=== PATIENT | male | born 1985 | race Caucasian/White ===

== ENCOUNTER 2018-03-28 12:47 | Inpatient (IN) | payer MEDICAID, OTHER ==
[~2018-03-28] VITALS: Ht 182.9 cm; Wt 100.0 kg
[~2018-03-28 12:47] MED LIST: ARIP10TA8 PO
[2018-03-28 13:26] LABS: AMPHET/METH SCREEN,URINE NEGATIVE (NEGATIVE); BARBITURATE SCREEN, URINE NEGATIVE (NEGATIVE); BENZODIAZEPINES SCREEN,URINE NEGATIVE (NEGATIVE); CANNABINOID SCREEN,URINE NEGATIVE (NEGATIVE); COCAINE SCREEN,URINE NEGATIVE (NEGATIVE); METHADONE SCREEN, URINE NEGATIVE (NEGATIVE); OPIATE SCREEN,URINE NEGATIVE (NEGATIVE)
[2018-03-28 13:28] LABS: PHENCYCLIDINE SCREEN,URINE NEGATIVE (NEGATIVE)
[2018-03-28 13:31] LABS: BASOPHILS % (AUTO) 0.4 % (0.0-2.0); EOSINOPHILS % (AUTO) 0.7 % (1.0-6.0); HEMATOCRIT 47.3 % (41-53); HEMOGLOBIN 16.3 g/dL (13.5-17.5); LYMPHOCYTES # (AUTO) 2.1 K/uL (1.0-4.8); LYMPHOCYTES % (AUTO) 24.2 % (22.0-44.0); MEAN CORPUSCULAR HEMOGLOBIN 31.2 pg (26.0-34.0); MEAN CORPUSCULAR HGB CONC 34.5 G/dL (31.0-37.0); MEAN CORPUSCULAR VOLUME 91 fL (80-100); MONOCYTES # (AUTO) 0.5 K/uL (0.1-1.0); MONOCYTES % (AUTO) 6.3 % (2.0-9.0); NEUTROPHILS % (AUTO) 68.4 % (40.0-70.0); PLATELET COUNT (AUTO) 189 K/uL (150-450); RED BLOOD CELL COUNT(AUTO) 5.22 MIL/uL (4.50-5.90); RED CELL DISTRIBUTION WIDTH 13.1 % (11.5-14.5)
[2018-03-28 13:39] LABS: ANION GAP 6 mmol/L (8-16); CARBON DIOXIDE 29 mmol/L (22-29); CHLORIDE 104 mmol/L (98-107); CREATININE 1.05 mg/dL (0.60-1.30); GLOMERULAR FILTR. RATE CALC > 60 mL/min (>60); GLUCOSE,RANDOM 102 mg/dL (70-110); POTASSIUM 3.7 mmol/L (3.5-5.1); SODIUM SERUM 139 mmol/L (136-145); UREA NITROGEN, BLOOD 17 mg/dL (7-18)
[2018-03-28] MEDS ORDERED: QUET200T PO (13:42)
[2018-03-28 13:44] LABS: ALANINE AMINOTRANSFERASE 83 U/L (12-78); ALBUMIN 4.1 g/dL (3.4-5.0); ALKALINE PHOSPHATASE 124 U/L (46-116); ASPARTATE AMINOTRANSFERASE 35 U/L (15-37); BILIRUBIN,TOTAL 0.7 mg/dL (0.1-1.0)
[2018-03-28] MEDS ORDERED: HALOPERIDOL 5 MG TABLET PO ONE (14:45)
[2018-03-28] MEDS ORDERED: LORazepam 2 MG TABLET PO ONE (14:45)
[2018-03-28] MEDS ORDERED: ZOLPIDEM TARTRATE 10 MG TABLET PO PRN (18:45)
[2018-03-29 08:48] LABS: BASOPHILS % (AUTO) 0.2 % (0.0-2.0); EOSINOPHILS % (AUTO) 0.4 % (1.0-6.0); HEMATOCRIT 44.3 % (41-53); HEMOGLOBIN 15.3 g/dL (13.5-17.5); LYMPHOCYTES # (AUTO) 1.4 K/uL (1.0-4.8); LYMPHOCYTES % (AUTO) 19.5 % (22.0-44.0); MEAN CORPUSCULAR HEMOGLOBIN 31.1 pg (26.0-34.0); MEAN CORPUSCULAR HGB CONC 34.4 G/dL (31.0-37.0); MEAN CORPUSCULAR VOLUME 91 fL (80-100); MONOCYTES # (AUTO) 0.3 K/uL (0.1-1.0); MONOCYTES % (AUTO) 4.1 % (2.0-9.0); NEUTROPHILS # (AUTO) 5.6 K/uL (1.8-7.7); NEUTROPHILS % (AUTO) 75.8 % (40.0-70.0); PLATELET COUNT (AUTO) 170 K/uL (150-450); RED CELL DISTRIBUTION WIDTH 13.1 % (11.5-14.5)
[2018-03-29 09:19] LABS: ALANINE AMINOTRANSFERASE 73 U/L (12-78); ALBUMIN 3.7 g/dL (3.4-5.0); ALKALINE PHOSPHATASE 120 U/L (46-116); ANION GAP 6 mmol/L (8-16); ASPARTATE AMINOTRANSFERASE 30 U/L (15-37); BILIRUBIN,TOTAL 0.6 mg/dL (0.1-1.0); CALCIUM, TOTAL 8.7 mg/dL (8.8-10.5); CARBON DIOXIDE 29 mmol/L (22-29); CHLORIDE 106 mmol/L (98-107); FREE T4 (FREE THYROXINE) 0.88 ng/dL (0.76-1.46); GLOMERULAR FILTR. RATE CALC > 60 mL/min (>60); GLUCOSE,RANDOM 120 mg/dL (70-110); POTASSIUM 3.9 mmol/L (3.5-5.1); SODIUM SERUM 141 mmol/L (136-145); TOTAL PROTEIN, SERUM 7.4 g/dL (6.4-8.2); UREA NITROGEN, BLOOD 14 mg/dL (7-18)
[2018-03-29 16:06] VITALS: BP 126/63
[2018-03-29] MEDS: HALOPERIDOL 5 MG TABLET PO PRN (17:01)
[2018-03-29] MEDS: LORazepam 2 MG TABLET PO PRN (17:01)
[2018-03-30 01:25] VITALS: BP 135/75
[2018-03-30] MEDS: LORazepam 2 MG TABLET PO PRN ×3 (01:26→18:36)
[2018-03-30] MEDS: HALOPERIDOL 5 MG TABLET PO PRN ×2 (01:26→08:32)
[2018-03-30 08:37] VITALS: BP 113/76
[2018-03-30 16:00] VITALS: BP 119/70
[2018-03-30] MEDS: ARIPiprazole 15 MG TABLET PO SCH (16:58)
[2018-03-30] MEDS ORDERED: MIRTAZAPINE 15 MG TABLET PO SCH (21:00)
[2018-03-31 03:57] VITALS: BP 123/73
[2018-03-31 08:05] VITALS: BP 135/61
[2018-03-31] MEDS: ARIPiprazole 15 MG TABLET PO SCH (08:35)
[2018-03-31] MEDS ORDERED: ARIP15TA2 PO (09:27)
[2018-03-31] MEDS ORDERED: MIRT15 PO (09:27)
== END 2018-03-31 13:30 | disposition home or self-care (01) | DRG 750 ==
LOC: EMS 12:50 → B3A 03-29 13:23
PROVIDERS: ADMIT Psychiatry & Neurology Child & Adolescent Psychiatry; ATTEND Psychiatry & Neurology Child & Adolescent Psychiatry
DX: F20.0 Paranoid schizophrenia (principal); R45.87 Impulsiveness; Z63.9 Problem related to primary support group, unspecified
CPT/HCPCS: 84439; 84443; 99285; G0480

== ENCOUNTER 2018-08-02 23:51 | Emergency (ER) | payer MEDICAID, OTHER ==
[~2018-08-02] VITALS: Ht 188 cm; Wt 107.0 kg
[~2018-08-02 23:51] MED LIST changes: -ARIP10TA8 PO; +ARIP15TA2 PO; +MIRT15 PO
[2018-08-03] MEDS ORDERED: QUET200T PO (00:03)
[2018-08-03] MEDS ORDERED: TRAZ150 PO (00:04)
[2018-08-03] MEDS ORDERED: CLON1 PO (00:04)
[2018-08-03] MEDS ORDERED: IBUPROFEN 600 MG TABLET PO ONE (02:15)
[2018-08-03] MEDS ORDERED: ONDANSETRON HCL 4 MG TABLET PO ONE (02:15)
[2018-08-03 03:15] VITALS: BP 118/80
== END 2018-08-03 03:31 | disposition home or self-care (01) ==
LOC: EMS 23:52
DX: R07.89 Other chest pain (principal); R06.02 Shortness of breath; F41.9 Anxiety disorder, unspecified; F20.9 Schizophrenia, unspecified; Z79.899 Other long term (current) drug therapy
CPT/HCPCS: 71045; 93005; 99284; Q0162

== ENCOUNTER 2018-12-17 17:34 | Inpatient (IN) | payer MEDICAID, OTHER ==
[~2018-12-17] VITALS: Ht 180.3 cm; Wt 109.5 kg
[~2018-12-17 17:34] MED LIST changes: -ARIP15TA2 PO; +CLON1 PO; +QUET200T PO; +TRAZ150 PO
[2018-12-17] MEDS ORDERED: TRAZ150 PO (18:23)
[2018-12-17] MEDS ORDERED: QUET200T PO (18:23)
[2018-12-17] MEDS ORDERED: CLON1 PO (18:23)
[2018-12-17] MEDS ORDERED: MIRT15 PO (18:23)
[2018-12-17 19:18] LABS: BASOPHILS % (AUTO) 0.3 % (0.0-2.0); EOSINOPHILS % (AUTO) 0.1 % (1.0-6.0); HEMATOCRIT 46.1 % (41-53); HEMOGLOBIN 15.9 g/dL (13.5-17.5); LYMPHOCYTES # (AUTO) 1.5 K/uL (1.0-4.8); LYMPHOCYTES % (AUTO) 13.7 % (22.0-44.0); MEAN CORPUSCULAR HEMOGLOBIN 31.3 pg (26.0-34.0); MEAN CORPUSCULAR HGB CONC 34.4 G/dL (31.0-37.0); MEAN CORPUSCULAR VOLUME 91 fL (80-100); MONOCYTES # (AUTO) 0.5 K/uL (0.1-1.0); MONOCYTES % (AUTO) 4.2 % (2.0-9.0); NEUTROPHILS # (AUTO) 8.8 K/uL (1.8-7.7); NEUTROPHILS % (AUTO) 81.7 % (40.0-70.0); PLATELET COUNT (AUTO) 171 K/uL (150-450); RED BLOOD CELL COUNT(AUTO) 5.06 MIL/uL (4.50-5.90); RED CELL DISTRIBUTION WIDTH 13.1 % (11.5-14.5)
[2018-12-17 19:20] LABS: ANION GAP 9 mmol/L (8-16); CALCIUM, TOTAL 9.4 mg/dL (8.8-10.5); CARBON DIOXIDE 26 mmol/L (22-29); CHLORIDE 103 mmol/L (98-107); CREATININE 1.18 mg/dL (0.60-1.30); GLOMERULAR FILTR. RATE CALC > 60 mL/min (>60); GLUCOSE,RANDOM 135 mg/dL (70-110); POTASSIUM 3.9 mmol/L (3.5-5.1); SODIUM SERUM 138 mmol/L (136-145); UREA NITROGEN, BLOOD 19 mg/dL (7-18)
[2018-12-17 19:25] LABS: ALANINE AMINOTRANSFERASE 210 U/L (12-78); ALBUMIN 4.3 g/dL (3.4-5.0); ALKALINE PHOSPHATASE 123 U/L (46-116); ASPARTATE AMINOTRANSFERASE 73 U/L (15-37); BILIRUBIN,TOTAL 0.4 mg/dL (0.1-1.0)
[2018-12-17] MEDS ORDERED: HALOPERIDOL 5 MG TABLET PO PRN (23:30)
[2018-12-17] MEDS ORDERED: LORazepam 2 MG TABLET PO PRN (23:30)
[2018-12-17] MEDS ORDERED: ZOLPIDEM TARTRATE 10 MG TABLET PO PRN (23:30)
[2018-12-18 00:40] VITALS: BP 124/78
[2018-12-18 07:01] LABS: CHOL/HDL RATIO 4.6 (4.2-7.3)
[2018-12-18 08:00] VITALS: BP 122/72
[2018-12-18] MEDS: ClonazePAM 1 MG TABLET PO SCH (13:56)
[2018-12-18] MEDS ORDERED: LORazepam 2 MG TABLET PO PRN (15:30)
[2018-12-18 17:53] VITALS: BP 120/78
[2018-12-18] MEDS: QUEtiapine FUMARATE 200 MG TABLET PO SCH (18:00)
[2018-12-18] MEDS: TraZODone HCL 150 MG TABLET PO SCH (21:31)
[2018-12-18] MEDS: MIRTAZAPINE 15 MG TABLET PO SCH (21:31)
[2018-12-19] MEDS: QUEtiapine FUMARATE 200 MG TABLET PO SCH ×2 (08:34→16:03)
[2018-12-19] MEDS: ClonazePAM 1 MG TABLET PO SCH (08:34)
[2018-12-19 08:40] VITALS: BP 125/73
[2018-12-19 16:52] VITALS: BP 141/73
[2018-12-19] MEDS: TraZODone HCL 150 MG TABLET PO SCH (20:48)
[2018-12-19] MEDS: MIRTAZAPINE 15 MG TABLET PO SCH (20:48)
[2018-12-20] MEDS: ClonazePAM 1 MG TABLET PO SCH (07:45)
[2018-12-20] MEDS: QUEtiapine FUMARATE 200 MG TABLET PO SCH ×2 (07:45→16:47)
[2018-12-20 08:00] VITALS: BP 126/82
== END 2018-12-20 17:00 | disposition home or self-care (01) | DRG 750 ==
LOC: EMS 17:36 → 3EC 23:30
DX: F25.1 Schizoaffective disorder, depressive type (principal); K76.0 Fatty (change of) liver, not elsewhere classified; E78.1 Pure hyperglyceridemia; Z79.899 Other long term (current) drug therapy; Z28.21 Immunization not carried out because of patient refusal
CPT/HCPCS: G0480

== ENCOUNTER 2019-02-12 22:34 | Emergency (ER) | payer MEDICAID, OTHER ==
[~2019-02-12] VITALS: Ht 182.9 cm; Wt 113.6 kg
[2019-02-12] MEDS ORDERED: GuaiFENesin/D-METHORPHAN [SUGAR-FREE] 200-20MG/10 ML SYRUP UDCUP PO ONE (23:30)
[2019-02-12] MEDS ORDERED: ACETAMINOPHEN 500 MG TABLET PO ONE (23:30)
[2019-02-13 00:10] VITALS: BP 128/71
== END 2019-02-13 00:27 | disposition home or self-care (01) ==
LOC: EMS 22:35
DX: J06.9 Acute upper respiratory infection, unspecified (principal); F20.9 Schizophrenia, unspecified; Z79.899 Other long term (current) drug therapy

== ENCOUNTER 2019-12-25 17:40 | Emergency (ER) | payer OTHER ==
[~2019-12-25] VITALS: Ht 188 cm; Wt 118.2 kg
[~2019-12-25 17:40] MED LIST changes: -CLON1 PO; +CLON1TAB13 PO; -MIRT15 PO
[2019-12-25 18:56] LABS: BASOPHILS % (AUTO) 0.3 % (0.0-2.0); EOSINOPHILS % (AUTO) 0.3 % (1.0-6.0); HEMATOCRIT 43.1 % (41-53); HEMOGLOBIN 14.6 g/dL (13.5-17.5); LYMPHOCYTES # (AUTO) 1.9 K/uL (1.0-4.8); LYMPHOCYTES % (AUTO) 15.4 % (22.0-44.0); MEAN CORPUSCULAR HEMOGLOBIN 30.8 pg (26.0-34.0); MEAN CORPUSCULAR HGB CONC 33.8 G/dL (31.0-37.0); MEAN CORPUSCULAR VOLUME 91 fL (80-100); MONOCYTES # (AUTO) 0.8 K/uL (0.1-1.0); MONOCYTES % (AUTO) 6.3 % (2.0-9.0); NEUTROPHILS # (AUTO) 9.5 K/uL (1.8-7.7); NEUTROPHILS % (AUTO) 77.7 % (40.0-70.0); PLATELET COUNT (AUTO) 153 K/uL (150-450); RED BLOOD CELL COUNT(AUTO) 4.73 MIL/uL (4.50-5.90); RED CELL DISTRIBUTION WIDTH 13.3 % (11.5-14.5)
[2019-12-25] MEDS ORDERED: LORA-1000 PO (18:59)
[2019-12-25 19:20] LABS: ANION GAP 6 mmol/L (8-16); CALCIUM, TOTAL 9.5 mg/dL (8.8-10.5); CARBON DIOXIDE 30 mmol/L (22-29); CHLORIDE 100 mmol/L (98-107); CREATININE 1.21 mg/dL (0.60-1.30); GLOMERULAR FILTR. RATE CALC > 60 mL/min (>60); GLUCOSE,RANDOM 102 mg/dL (70-110); POTASSIUM 3.8 mmol/L (3.5-5.1); SODIUM SERUM 136 mmol/L (136-145); UREA NITROGEN, BLOOD 16 mg/dL (7-18)
[2019-12-25 19:26] LABS: ALANINE AMINOTRANSFERASE 140 U/L (12-78); ALBUMIN 4.4 g/dL (3.4-5.0); ALKALINE PHOSPHATASE 131 U/L (46-116); ASPARTATE AMINOTRANSFERASE 79 U/L (15-37); BILIRUBIN,TOTAL 0.7 mg/dL (0.1-1.0); TOTAL PROTEIN, SERUM 7.9 g/dL (6.4-8.2)
[2019-12-25 19:28] LABS: APPEARANCE,URINE CLEAR (CLEAR); BILIRUBIN,URINE NEGATIVE (NEGATIVE); GLUCOSE, URINE (UA) NEGATIVE (NEGATIVE); KETONES,URINE NEGATIVE (NEGATIVE); LEUKOCYTE ESTERASE ,URINE NEGATIVE (NEGATIVE); NITRATE,URINE NEGATIVE (NEGATIVE); OCCULT BLOOD,URINE NEGATIVE (NEGATIVE); PH,URINE 5.5 (5.0-8.0); PROTEIN,URINE NEGATIVE (NEGATIVE); UROBILINOGEN,URINE 0.2 mg/dL (<=1.0)
[2019-12-25 19:33] LABS: AMPHET/METH SCREEN,URINE NEGATIVE (NEGATIVE); BARBITURATE SCREEN, URINE NEGATIVE (NEGATIVE); BENZODIAZEPINES SCREEN,URINE NEGATIVE (NEGATIVE); CANNABINOID SCREEN,URINE NEGATIVE (NEGATIVE); COCAINE SCREEN,URINE NEGATIVE (NEGATIVE); METHADONE SCREEN, URINE NEGATIVE (NEGATIVE); OPIATE SCREEN,URINE NEGATIVE (NEGATIVE); PHENCYCLIDINE SCREEN,URINE NEGATIVE (NEGATIVE)
[2019-12-25] MEDS ORDERED: LORazepam 2 MG TABLET PO ONE (20:00)
[2019-12-25] MEDS ORDERED: QUET300T2 PO (20:15)
[2019-12-25 20:52] VITALS: BP 120/76
== END 2019-12-25 21:06 | disposition home or self-care (01) ==
LOC: EMS 17:43
DX: F20.9 Schizophrenia, unspecified (principal); F41.9 Anxiety disorder, unspecified; T42.4X5A Adverse effect of benzodiazepines, initial encounter; F32.9 Major depressive disorder, single episode, unspecified; Z79.899 Other long term (current) drug therapy; Y92.89 Other specified places as the place of occurrence of the external cause
CPT/HCPCS: 36415; 80053; 80307; 81003; 85025; 99284; G0480

== ENCOUNTER 2025-08-09 21:48 | Emergency (ER) | payer OTHER ==
[~2025-08-09] VITALS: Ht 180.3 cm; Wt 106.4 kg
[~2025-08-09 21:48] MED LIST changes: -CLON1TAB13 PO; +LORA1TAB25 PO; -QUET200T PO; +QUET300T2 PO; -TRAZ150 PO; +TRAZ150T80 PO
[2025-08-09] MEDS ORDERED: ASEN10TA14 SL (22:03)
[2025-08-09] MEDS ORDERED: BENZ0.5T52 PO (22:03)
[2025-08-09] MEDS ORDERED: FENO160T14 PO (22:03)
[2025-08-09] MEDS ORDERED: SEMA0.258 SQ (22:03)
[2025-08-09 22:04] VITALS: BP 127/76; PULSE 89; RESP 16; TEMP 97.9; O2SAT 97
[2025-08-09 22:26] LABS: PLATELET COUNT (AUTO) 196 K/uL (150-450); RED BLOOD CELL COUNT(AUTO) 4.61 MIL/uL (4.50-5.90); RED CELL DISTRIBUTION WIDTH 13.0 % (11.5-14.5); WHITE BLOOD COUNT (AUTO) 9.0 K/uL (4.5-11.0)
[2025-08-09 22:31] LABS: CALCIUM, TOTAL 8.6 mg/dL (8.8-10.5); CREATININE 1.5 mg/dL (0.60-1.30); GLOMERULAR FILTR. RATE CALC 52.0 mL/min (>60); GLUCOSE,RANDOM 190.0 mg/dL (70-110); SODIUM SERUM 138.0 mmol/L (136-145); UREA NITROGEN, BLOOD 19.0 mg/dL (7-18)
[2025-08-10 01:05] LABS: APPEARANCE,URINE CLEAR (CLEAR); GLUCOSE, URINE (UA) 70-100 mg/dL (NEGATIVE); LEUKOCYTE ESTERASE ,URINE NEGATIVE (NEGATIVE); NITRATE,URINE NEGATIVE (NEGATIVE); OCCULT BLOOD,URINE NEGATIVE (NEGATIVE); SPECIFIC GRAVITIY, URINE 1.027 (1.003-1.030)
[2025-08-10 01:12] LABS: SQUAMOUS EPITHELIAL CELL,UR Few /LPF (None Seen)
[2025-08-10 01:24] LABS: ASPARTATE AMINOTRANSFERASE 31.0 U/L (15-37); TOTAL PROTEIN, SERUM 7.2 g/dL (6.4-8.2)
[2025-08-10] MEDS: MAG HYDROX/ALUMINUM HYD/SIMETH ES 30 ML SUSPENSION UDCUP PO ONE (01:28)
[2025-08-10] MEDS ORDERED: POLY119P3 PO (03:29)
== END 2025-08-10 03:31 | disposition home or self-care (01) ==
LOC: EMS 21:48
DX: K59.00 Constipation, unspecified (principal); R10.12 Left upper quadrant pain; R19.7 Diarrhea, unspecified; E11.9 Type 2 diabetes mellitus without complications; F20.9 Schizophrenia, unspecified; F32.A Depression, unspecified; F41.9 Anxiety disorder, unspecified; Z79.85 Long-term (current) use of injectable non-insulin antidiabetic drugs; Z79.899 Other long term (current) drug therapy
CPT/HCPCS: 74018; 80048; 80076; 81001; 81003; 82962; 83690; 85025; 99284; 36415-L1; 36415-TC